=== PATIENT | female | born 2005 | race Hispanic/Latino ===

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

== ENCOUNTER 2023-01-30 15:21 | Emergency (ER) | payer MEDICAID ==
[~2023-01-30] VITALS: Ht 152.4 cm; Wt 63.5 kg
[~2023-01-30 15:21] MED LIST changes: +CLIN-141 PO
[2023-01-30 16:12] LABS: BASOPHILS % (AUTO) 0.2 % (0.0-5.0); EOSINOPHILS % (AUTO) 0.1 % (0.0-8.0); HEMATOCRIT 37.9 % (36-48); LYMPHOCYTES % (AUTO) 18.1 % (21.0-51.0); MEAN CORPUSCULAR HEMOGLOBIN 25.1 pg (27.0-33.0); MEAN CORPUSCULAR VOLUME 76.1 fL (80-100); MONOCYTES % (AUTO) 4.3 % (3.0-13.0); NEUTROPHILS % (AUTO) 76.8 % (40.0-77.0); PLATELET COUNT (AUTO) 379 K/uL (130-400); RED BLOOD CELL COUNT(AUTO) 4.98 MIL/uL (4.00-5.50); RED CELL DISTRIBUTION WIDTH 13.5 % (11.0-15.5); WHITE BLOOD COUNT (AUTO) 8.2 K/uL (4.8-10.8)
[2023-01-30 16:25] LABS: APPEARANCE,URINE CLOUDY (CLEAR); BILIRUBIN,URINE NEGATIVE (NEGATIVE); COLOR,URINE YELLOW (YELLOW); GLUCOSE, URINE (UA) NEGATIVE (NEGATIVE); KETONES,URINE >=80 mg/dL (NEGATIVE); LEUKOCYTE ESTERASE ,URINE 500 Leu/uL (NEGATIVE); NITRATE,URINE NEGATIVE (NEGATIVE); OCCULT BLOOD,URINE NEGATIVE (NEGATIVE); PROTEIN,URINE 50 mg/dL (NEGATIVE); UROBILINOGEN,URINE 0.2 mg/dL (0.2-1.0)
[2023-01-30 16:26] LABS: CARBON DIOXIDE 24 mmol/L (21-32); CHLORIDE 102 mmol/L (101-111); CREATININE 0.8 mg/dL (0.5-1.5); GLOMERULAR FILTR. RATE CALC 109 mL/min (>90); GLUCOSE,RANDOM 75 mg/dL (70-105); POTASSIUM 3.9 mmol/L (3.5-5.1); SODIUM SERUM 138 mmol/L (136-145); UREA NITROGEN, BLOOD 18 mg/dL (7-18)
[2023-01-30 16:30] LABS: ALANINE AMINOTRANSFERASE 33 U/L (12-78); ALBUMIN 4.6 g/dL (3.5-5.0); ASPARTATE AMINOTRANSFERASE 14 U/L (10-37)
[2023-01-30 16:32] LABS: HCG,QUALITATIVE URINE NEGATIVE (NEGATIVE)
[2023-01-30 16:34] LABS: LIPASE < 50 U/L (114-286)
[2023-01-30 16:41] LABS: MUCUS,URINE MANY LPF (None Seen); SQUAMOUS EPITHELIAL CELL,UR FEW /HPF (0-2)
[2023-01-30] MEDS ORDERED: CEPH500B PO (18:18)
[2023-01-30 18:33] VITALS: BP 121/71
== END 2023-01-30 18:32 | disposition home or self-care (01) ==
LOC: EDH 15:21
DX: N39.0 Urinary tract infection, site not specified (principal); J45.909 Unspecified asthma, uncomplicated
CPT/HCPCS: 36415; 80053; 81001; 81025; 83690; 85025; 87088

== ENCOUNTER 2023-06-17 19:43 | Emergency (ER) | payer MEDICAID ==
[~2023-06-17] VITALS: Ht 154.9 cm; Wt 60.8 kg
[~2023-06-17 19:43] MED LIST changes: +CEPH500B PO
[2023-06-17 22:52] LABS: APPEARANCE,URINE CLEAR (CLEAR); BILIRUBIN,URINE NEGATIVE (NEGATIVE); COLOR,URINE YELLOW (YELLOW); GLUCOSE, URINE (UA) NEGATIVE (NEGATIVE); KETONES,URINE NEGATIVE (NEGATIVE); LEUKOCYTE ESTERASE ,URINE 75 Leu/uL (NEGATIVE); NITRATE,URINE NEGATIVE (NEGATIVE); PH,URINE 6.5 (5.0-8.0); PROTEIN,URINE NEGATIVE (NEGATIVE)
[2023-06-17 22:53] LABS: ADD UA MICROSCOPIC YES
[2023-06-17 22:55] LABS: HCG,QUALITATIVE URINE NEGATIVE (NEGATIVE)
[2023-06-17 22:56] LABS: MUCUS,URINE RARE LPF (None Seen); SQUAMOUS EPITHELIAL CELL,UR RARE /HPF (0-2)
[2023-06-17 23:25] LABS: BASOPHILS # (AUTO) 0.02 K/uL (0.00-0.20); BASOPHILS % (AUTO) 0.3 % (0.0-5.0); EOSINOPHILS % (AUTO) 1.4 % (0.0-8.0); HEMATOCRIT 36.4 % (36-48); IMMATURE GRANULOCYTE ABSOLUTE 0.02 K/uL (0-1); LYMPHOCYTES # (AUTO) 2.5 K/uL (1.0-4.8); MEAN CORPUSCULAR HEMOGLOBIN 24.9 pg (27.0-33.0); MEAN CORPUSCULAR HGB CONC 31.9 g/dL (32.0-36.0); MEAN CORPUSCULAR VOLUME 78.1 fL (80-100); MONOCYTES # (AUTO) 0.3 K/uL (0.1-1.0); MONOCYTES % (AUTO) 4.3 % (3.0-13.0); NEUTROPHILS # (AUTO) 4.2 K/uL (1.8-7.7); NEUTROPHILS % (AUTO) 58.7 % (40.0-77.0); PLATELET COUNT (AUTO) 396 K/uL (130-400); RED BLOOD CELL COUNT(AUTO) 4.66 MIL/uL (4.00-5.50); RED CELL DISTRIBUTION WIDTH 14.1 % (11.0-15.5); WHITE BLOOD COUNT (AUTO) 7.2 K/uL (4.8-10.8)
[2023-06-17] MEDS ORDERED: MORPHINE 4 MG SYG IVP ONE (23:30)
[2023-06-17] MEDS ORDERED: ONDANSETRON 4MG INJ IVP ONE (23:30)
[2023-06-17 23:37] LABS: SARS-CoV-2, RNA, NAAT NEGATIVE SARS CoV-2 (NEGATIVE)
[2023-06-17 23:39] LABS: CREATININE 0.7 mg/dL (0.5-1.5); POTASSIUM 3.4 mmol/L (3.5-5.1)
[2023-06-17 23:43] LABS: ALBUMIN 4.1 g/dL (3.5-5.0); BILIRUBIN,TOTAL 0.3 mg/dL (0.2-1.0); TOTAL PROTEIN, SERUM 7.5 g/dL (6.0-8.3)
[2023-06-17 23:43] LABS: INFLUENZA TYPE A Negative For Type A (NEGATIVE); INFLUENZA TYPE B Negative For Type B (NEGATIVE)
[2023-06-18] MEDS ORDERED: IOHEXOL 350 MG/ML 100ML INFUS..BTL IV ONE (01:19)
[2023-06-18] MEDS ORDERED: CEFU500T67 PO (02:32)
[2023-06-18] MEDS ORDERED: IBUP-1493 PO (02:32)
[2023-06-18 02:58] VITALS: BP 122/56; PULSE 88; RESP 20
[2023-06-18] MEDS ORDERED: ONDA4TAB10 PO (16:03)
[2023-06-18] MEDS ORDERED: TAMS-1 PO (16:03)
[2023-06-18] MEDS ORDERED: IBUP-2070 PO (16:03)
== END 2023-06-18 03:11 | disposition home or self-care (01) ==
LOC: EDH 19:43
DX: N39.0 Urinary tract infection, site not specified (principal); R10.11 Right upper quadrant pain; J45.909 Unspecified asthma, uncomplicated; Z20.822 Contact with and (suspected) exposure to COVID-19
CPT/HCPCS: 99285; 96374; 76705; 87635; 96375; 80053; 83690; 85025; 87088; 87880; 87804 ×2; 81001; 81025; 36415; C9803; J2405; J2270; 74177; Q9967

== ENCOUNTER 2023-06-18 14:11 | Emergency (ER) | payer MEDICAID ==
[~2023-06-18] VITALS: Ht 154.9 cm; Wt 60.9 kg
[~2023-06-18 14:11] MED LIST changes: +CEFU500T67 PO; +IBUP-1493 PO
[2023-06-18 14:48] VITALS: BP 120/69; PULSE 72; RESP 16; O2SAT 100
[2023-06-18 15:55] LABS: APPEARANCE,URINE CLEAR (CLEAR); BILIRUBIN,URINE NEGATIVE (NEGATIVE); COLOR,URINE LIGHT-YELLOW (YELLOW); GLUCOSE, URINE (UA) NEGATIVE (NEGATIVE); KETONES,URINE NEGATIVE (NEGATIVE); LEUKOCYTE ESTERASE ,URINE 75 Leu/uL (NEGATIVE); NITRATE,URINE NEGATIVE (NEGATIVE); PH,URINE 6.5 (5.0-8.0); PROTEIN,URINE NEGATIVE (NEGATIVE); UROBILINOGEN,URINE 0.2 mg/dL (0.2-1.0)
[2023-06-18 15:56] LABS: ADD UA MICROSCOPIC YES
[2023-06-18 15:57] LABS: HCG,QUALITATIVE URINE NEGATIVE (NEGATIVE)
[2023-06-18] MEDS ORDERED: IBUP-2070 PO (16:03)
[2023-06-18] MEDS ORDERED: ONDA4TAB10 PO (16:03)
[2023-06-18] MEDS ORDERED: TAMS-1 PO (16:03)
[2023-06-18 16:04] LABS: BACTERIA,URINE FEW /HPF (None Seen); MUCUS,URINE FEW LPF (None Seen); SQUAMOUS EPITHELIAL CELL,UR RARE /HPF (0-2)
[2023-06-18] MEDS ORDERED: IBUPROFEN 600 MG TABLET PO ONE (16:30)
[2023-06-18] MEDS ORDERED: TAMSULOSIN HCL 0.4 MG CAP.ER.24H PO ONE (16:30)
[2023-06-18] MEDS ORDERED: ONDANSETRON ODT 4MG TAB SL ONE (16:30)
== END 2023-06-18 16:31 | disposition home or self-care (01) ==
LOC: EDH 14:11
DX: N20.0 Calculus of kidney (principal); N28.1 Cyst of kidney, acquired; J45.909 Unspecified asthma, uncomplicated; Z79.1 Long term (current) use of non-steroidal anti-inflammatories (NSAID)
CPT/HCPCS: 99284; 74177; 81001; 81025; Q9967

== ENCOUNTER 2023-12-13 16:21 | Emergency (ER) | payer MEDICAID ==
[~2023-12-13] VITALS: Ht 144.8 cm; Wt 59.0 kg
[~2023-12-13 16:21] MED LIST changes: +ONDA4TAB10 PO; +TAMS-1 PO
[2023-12-13 18:23] LABS: BASOPHILS # (AUTO) 0.03 K/uL (0.00-0.20); BASOPHILS % (AUTO) 0.4 % (0.0-5.0); EOSINOPHILS # (AUTO) 0.15 K/uL (0.00-0.70); EOSINOPHILS % (AUTO) 1.9 % (0.0-8.0); HEMATOCRIT 39.5 % (36-48); IMMATURE GRANULOCYTE ABSOLUTE 0.01 K/uL (0-1); LYMPHOCYTES # (AUTO) 1.8 K/uL (1.0-4.8); LYMPHOCYTES % (AUTO) 23.1 % (21.0-51.0); MEAN CORPUSCULAR HEMOGLOBIN 27.1 pg (27.0-33.0); MEAN CORPUSCULAR HGB CONC 32.9 g/dL (32.0-36.0); MEAN CORPUSCULAR VOLUME 82.5 fL (80-100); MONOCYTES # (AUTO) 0.3 K/uL (0.1-1.0); MONOCYTES % (AUTO) 4.3 % (3.0-13.0); NEUTROPHILS # (AUTO) 5.4 K/uL (1.8-7.7); NEUTROPHILS % (AUTO) 70.2 % (40.0-77.0); PLATELET COUNT (AUTO) 347 K/uL (130-400); RED BLOOD CELL COUNT(AUTO) 4.79 MIL/uL (4.00-5.50); RED CELL DISTRIBUTION WIDTH 12.6 % (11.0-15.5); WHITE BLOOD COUNT (AUTO) 7.8 K/uL (4.8-10.8)
[2023-12-13 18:42] LABS: CREATININE 0.9 mg/dL (0.5-1.0); POTASSIUM 3.7 mmol/L (3.5-5.1)
[2023-12-13 18:51] LABS: APPEARANCE,URINE CLOUDY (CLEAR); BILIRUBIN,URINE NEGATIVE (NEGATIVE); COLOR,URINE LIGHT-YELLOW (YELLOW); GLUCOSE, URINE (UA) NEGATIVE (NEGATIVE); KETONES,URINE NEGATIVE (NEGATIVE); LEUKOCYTE ESTERASE ,URINE 500 Leu/uL (NEGATIVE); NITRATE,URINE NEGATIVE (NEGATIVE); OCCULT BLOOD,URINE SMALL (NEGATIVE); PROTEIN,URINE NEGATIVE (NEGATIVE); UROBILINOGEN,URINE 0.2 mg/dL (0.2-1.0)
[2023-12-13 18:52] LABS: ADD UA MICROSCOPIC YES
[2023-12-13 18:53] LABS: ALBUMIN 4.1 g/dL (3.5-5.0); BILIRUBIN,TOTAL 0.3 mg/dL (0.2-1.0); TOTAL PROTEIN, SERUM 7.5 g/dL (6.0-8.3)
[2023-12-13 18:57] LABS: BACTERIA,URINE RARE /HPF (None Seen); MUCUS,URINE RARE LPF (None Seen); SQUAMOUS EPITHELIAL CELL,UR MOD /HPF (0-2); WBC,URINE 51-100 /HPF (0-1)
[2023-12-13] MEDS ORDERED: IOHEXOL-350 75 ML VIAL IV ONE (19:32)
[2023-12-13] MEDS: CEFTRIAXONE 2GM VIAL IVPB ONE (20:34)
[2023-12-13] MEDS ORDERED: SULF1TAB42 PO (20:34)
[2023-12-13 21:12] VITALS: BP 131/82; PULSE 72; RESP 18; O2SAT 100
== END 2023-12-13 21:20 | disposition home or self-care (01) ==
LOC: EDH 16:21
DX: N39.0 Urinary tract infection, site not specified (principal); R10.2 Pelvic and perineal pain; J45.909 Unspecified asthma, uncomplicated; Z79.899 Other long term (current) drug therapy
CPT/HCPCS: 99285; 74177; 96374; 80053; 84702; 83690; 85025; 87088; 81001; 36415; J0696; Q9967

== ENCOUNTER 2024-05-15 18:42 | Emergency (ER) | payer SELFPAY ==
[~2024-05-15] VITALS: Ht 142.2 cm; Wt 56.7 kg
[~2024-05-15 18:42] MED LIST changes: +ONDA-243 PO; -ONDA4TAB10 PO; +SULF1TAB42 PO
[2024-05-15] MEDS: acetaMINOPHEN 325 MG TAB PO STA (19:22)
[2024-05-15 19:49] VITALS: BP 128/68; PULSE 77; RESP 20; TEMP 98.4; O2SAT 98
== END 2024-05-15 20:44 | disposition home or self-care (01) ==
LOC: EDH 18:42
DX: S93.401A Sprain of unspecified ligament of right ankle, initial encounter (principal); J45.909 Unspecified asthma, uncomplicated; Z79.1 Long term (current) use of non-steroidal anti-inflammatories (NSAID); Z90.89 Acquired absence of other organs; X58.XXXA Exposure to other specified factors, initial encounter; Y93.89 Activity, other specified; Y92.89 Other specified places as the place of occurrence of the external cause; Y99.8 Other external cause status
CPT/HCPCS: 73600